=== PATIENT | female | born 1990 | race African-American/Black ===

== ENCOUNTER 2021-05-07 14:31 | Emergency (ER) | payer OTHER ==
--- OUTSIDE RECORDS SUMMARY | 2021-05-07 14:33 | XMS REPORT | Continuity of Care Document ---
:1990 Author Organization [facility] t Address [address] [place] [address] Care Team Providers Name Role Phone Albert Sandy MD Primary Care Physician Lab, Fam Pob I Attending Clinician Unavailable Julissa RODRÍGUEZ, T Attending Clinician Unavailable Problems Condition Condition Condition Status Onset Resolution Last Treating Co mments Source Name Details Category Date Date Treatment Clinician Date Allergic Allergic Disease Active Overview: [place] [facility] Methodi g of this st note might be different from the original. seasonal Pneumonia Pneumonia Disease Active Sohan efra Methodi st Sinusitis Sinusitis Disease Active Overview: [place] Form[facility] Methodi g of this st note might be different from the original. periodica lly Visual Visual Disease Active Overview: Maritato n impairment impairment Form[facility]in Methodi g of this st note might be different from the original. wears contacts and glasses Asthma Asthma Disease Active [place] Methodi st Allergies, Adverse Reactions, Alerts Allergy Allergy Status Severity Reaction(s) Onset Inactive Treating Comm ents Source Name Type Date Date Clinician Cefaclor Propensi Active 2015-12 [place] ty to 01-08 Methodi adverse 00:00: st reaction 00 s to drug Codeine Propensi Active 2015-12 [place] ty to 01-08 Methodi adverse 00:00: st reaction 00 s to drug Family History Family Member Diagnosis Comments Start Date Stop Date Source Maternal grandmother Heart disease [place] [facility] Maternal grandmother Hypertension [place] [facility] Natural mother Depression [facility] Natural mother Diabetes [facility] Natural mother Hypertension [place] [facility] Natural mother Osteoarthritis [place] [facility] Paternal grandfather Cancer [place] [facility] Paternal grandfather Hypertension [place] [facility] Paternal grandmother Hypertension [place] [facility] Natural brother Diabetes [place] Myers ethodist Natural brother Hypertension [place] [facility] Natural father ALS [place] [facility] Natural father Diabetes [place] [facility] Maternal grandfather Cancer Marita Vernno Maternal grandfather Hypertension [place] [facility] Social History Social Habit Start Date Stop Date Quantity Comments Source Tobacco use and 2018-01-09 2018-01-09 Never used [place] Myers ethodist exposure 00:00:00 00:00:00 Alcohol intake 2018-01-09 2018-01-09 Current drinker Yolis murphy [facility] 00:00:00 00:00:00 of alcohol (finding) Alcohol Comment 2016-11-07 2016-11-07 socially Quinton Myers ethodist 00:00:00 00:00:00 Sex [birth year] Qu[facility] Myers ethodist 00:00:00 00:00:00 Smoking Status Start Date Stop Date Source Never smoker Quinton Oconnell t Medications Ordered Filled Start Stop Current Ordering Indication Dosage Frequency Signature Comments Components Source Medication Medication Date Date Medication? Clinician (SIG) Name Name cetirizine Yes 10mg QD Take 10 mg [place] (ZyrTEC) 10 2-08 by mouth Meth caren MG tablet 09:15: daily. st 31 levocetiriz Yes 5mg QD Take 5 mg [place] ine (XYZAL) 2-08 by mouth Meth caren 5 MG tablet 09:15: every st 31 evening. fluticasone Yes 2{spray QD 2 sprays [place] (FLONASE) 2-08 } by Each Methodi 50 09:15: Nare route st mcg/actuati 31 daily. on nasal spray cholecalcif Yes 1000U QD Take 1,000 [place] marilyn, 2-08 Units by Methodi vitamin D3, 09:15: mouth st (VITAMIN 31 daily. D3) 1,000 unit tablet ASCORBIC Yes 1{tbl} QD Take 1 [place] ACID/MULTIV 2-08 tablet by Met hodi IT-MIN 09:15: mouth st (EMERGEN-C 31 daily. ORAL) biotin 2017- Yes 1{tbl} QD Take 1 [place] 2,500 mcg 2-08 tablet by Metho di capsule 09:15: mouth st 31 daily. QVAR 80 Yes 2PUFFS BY [place] mcg/actuati 1-23 MOUTH Methodi on inhaler 00:00: TWICE A st 00 DAY FOR 2 WEEKS THEN 2 PUFFS ONCE A DAY VENTOLIN 2015-12 Yes INHALE 2 [place] HFA 90 2-27 PUFFS 4 Methodi mcg/actuati 00:00: TIMES A st on inhaler 00 DAY NEEDED MINASTRIN 2015-12 Yes 1{tbl} QD Chew 1 [place] 24 FE 1 1-23 tablet Methodi mg-20 00:00: once st mcg(24) /75 00 daily. mg (4) tablet,chew able Procedures This patient has no known procedures. Plan of Care Planned Activity Planned Date Details Comments Source Future Scheduled 2021-07-02 INFLUENZA VACCINE [place] [facility] Test 00:00:00 [code = INFLUENZA VACCINE] Future Scheduled 2010 Screening for [place] [facility] Test 00:00:00 malignant neoplasm of cervix (procedure) [code = 763727081] Future Scheduled 2001 COVID-19 VACCINE (1) Sohan kraus [facility] Test 00:00:00 [code = COVID-19 VACCINE (1)] Encounters Start End Encounter Admission Attending Care Care Encounter Source Date/Time Date/Time Type Type Clinicians Facility Department ID 2020-12-03 2020-12-03 Laboratory Lab, [facility] [id number] 10:19:42 10:39:42 Only Fam P[facility] [id number] [place] [id number] Professio [phone] nal [address] 2020-07-28 2020-07-28 Letter ARIEL Costa [id number] 00:00:00 00:00:00 (Out) Annamaria Winters MAKEDA [id number] [facility] [id number] 2020-07-26 2020-07-26 Laboratory Lab, [facility] [id number] 08:27:06 08:47:06 Only Fam Pob I Health [id number] [place] [id number] Professio [phone] nal [address] Results This patient has no known results.
[2021-05-07 15:16] LABS: Absolute Lymphocytes (CBC) 1.4 K/uL (0.7-4.9); Basophils % 0.6 % (0-1.3); MPV 8.7 fL (7.6-11.3); RBC Red Blood Cell Count 4.36 M/uL (3.86-4.86)
[2021-05-07 15:19] LABS: Urine Blood Trace-intact (Negative); Urine Glucose Negative (Negative); Urine Protein Negative (Negative); Urine Specific Gravity 1.015 (1.005-1.030)
[2021-05-07 15:25] LABS: Protime INR 1.01
[2021-05-07] MEDS ORDERED: KETOROLAC 30 MG/ML INJ ONE (15:39)
[2021-05-07 15:40] LABS: ALT/SGPT 26 U/L (12-78); AST/SGOT 14 U/L (15-37); Albumin 3.5 g/dL (3.4-5.0); Alkaline Phosphatase 40 U/L (45-117); BUN Blood Urea Nitrogen 8 mg/dL (7-18); Bicarbonate 25 mmol/L (21-32); Bilirubin Direct < 0.1 mg/dL (0-0.2); Bilirubin Total 0.3 mg/dL (0.2-1.0); Glucose Level 114 mg/dL (74-106); Magnesium 2.2 mg/dL (1.8-2.4); NT PRO-BNP 84 pg/mL (<125); Potassium 3.8 mmol/L (3.5-5.1); Sodium Level 140 mmol/L (136-145); Troponin (Emerg Dept Use Only) < 0.02 ng/mL (0.0-0.045)
[2021-05-07 16:25] LABS: Urine Specific Gravity/Preg 1.015 (1.005-1.030)
--- NOTE | 2021-05-07 16:31 | RAD REPORT ---
EXAM DESCRIPTION: CT - Chest For Pe Angio - 05/07/2021 4:11 pm CLINICAL HISTORY: Chest pain TECHNIQUE: Dynamically enhanced axial 3 mm thick images of the chest were obtained during administra tion of <100> mL Isovue 370 IV contrast. Coronal and oblique reconstruction images were generated and reviewed. Exam utilizes a protocol for optimal evaluation of pulmonary arterial tree. Maximum intensity projections 3D imaging was utilized All CT scans are performed using dose optimization technique as appropriate and may include automated exposure control or mA/KV adjustment according to patient size. FINDINGS: A pulmonary embolus is not seen. A thoracic aortic aneurysm is not noted. A pleural effusion is not seen. A pericardial effusion is not seen. A lung consolidation is not present. 7.9 centimeter mass right lobe of liver IMPRESSION: Negative for a pulmonary embolism. 7.9 centimeter mass right lobe of the liver. Nonemergent MRI with contrast is recommended for further evaluation
--- NOTE | 2021-05-07 16:44 | RAD REPORT ---
EXAM DESCRIPTION: [place] Single View05/07/2021 4:08 pm CLINICAL HISTORY: Chest pain COMPARISON: 2017 FINDINGS: The lungs appear clear of acute infiltrate. The heart is normal size IMPRESSION: No acute abnormalities displayed
--- NOTE | 2021-05-07 16:58 | EDPHYS ---
Physician Documentation [facility] Name: Khushboo Christopher Age: 31 yrs Sex: Female : 1990 Arrival Date: 05/07/2021 Time: 14:33 Bed 13 Private MD: ED Physician Claudy Medrano HPI: 05/07 14:47 This 31 yrs old Black Female presents to ER via Ambulatory with complaints of Chest pm1 Pain. 14:47 The patient or guardian reports chest pain that is located primarily in the mid-sternal pm1 area. The pain does not radiate. Associated signs and symptoms: The patient has no apparent associated signs or symptoms, Pertinent negatives: abdominal pain, cough, diaphoresis, dizziness, nausea, shortness of breath, syncope, vomiting. The chest pain is described as sharp. Duration: The patient or guardian reports a single episode, that is still ongoing. Modifying factors: the symptoms are aggravated by deep breath, palpation of area. Severity of pain: in the emergency department the pain is unchanged. The patient has not experienced similar symptoms in the past. Historical: - Allergies: 14:37 Ceclor; aa5 14:37 Codeine; aa5 - Home Meds: 14:37 control [Active]; Singulair Oral [Active]; Zyrtec Oral [Active]; aa5 - PMHx: 14:37 Sjogren's Syndrome; aa5 - PSHx: 14:37 eye sx when baby; aa5 - Immunization history:: Adult Immunizations unknown. - Social history:: Smoking status: Patient denies any tobacco usage or history of. ROS: 14:47 Constitutional: Negative for fever, chills, and weight loss. pm1 14:47 Respiratory: Negative for shortness of breath, cough, wheezing, and pleuritic chest pain, Abdomen/GI: Negative for abdominal pain, nausea, vomiting, diarrhea, and constipation, Back: Negative for injury and pain, MS/Extremity: Negative for injury and deformity, Skin: Negative for injury, rash, and discoloration, Neuro: Negative for headache, weakness, numbness, tingling, and seizure. 14:47 Cardiovascular: Positive for chest pain, Negative for edema, palpitations. 14:47 All other systems are negative. Exam: 14:47 Constitutional: This is a well developed, well nourished patient who is awake, alert, pm1 and in no acute distress. Head/Face: Normocephalic, atraumatic. 14:47 Back: No spinal tenderness. No costovertebral tenderness. Full range of motion. 14:47 Skin: Warm, dry with normal turgor. Normal color with no rashes, no lesions, and no evidence of cellulitis. MS/ Extremity: Pulses equal, no cyanosis. Neurovascular intact. Full, normal range of motion. 14:47 Eyes: Exam is negative for acute changes, Extraocular movements: intact throughout, Sclera: icterus, is not appreciated. 14:47 ENT: Mouth: Lips: normal, Oral mucosa: normal, pink and intact, moist. 14:47 Chest/axilla: Inspection: normal, Palpation: crepitus, is not appreciated, tenderness, of the mid-sternal area, that totally reproduces the patient's complaints. 14:47 Cardiovascular: Rate: normal, Rhythm: regular, Pulses: no pulse deficits are appreciated, Edema: is not appreciated. 14:47 Respiratory: Exam negative for acute changes, respiratory distress, shortness of breath, Breath sounds: are clear throughout. 14:47 Abdomen/GI: Inspection: abdomen appears normal, Palpation: abdomen is soft and non-tender. 14:47 Neuro: Exam negative for acute changes, Orientation: is normal, Mentation: is normal, Motor: is normal, moves all fours. Vital Signs: 14:37 BP 161 / 113; Pulse 112; Resp 18 S; Temp 98.2(TE); Pulse Ox 99% on R/A; Weight 77.11 kg aa5 (R); Height 5 ft. 4 in. (162.56 cm) (R); Pain 3/10; 15:10 BP 122 / 85; Pulse 86; Resp 16; Pulse Ox 98% on R/A; vg1 16:59 BP 127 / 89; Pulse 88; Resp 16; Pulse Ox 100% ; vg1 14:37 Body Mass Index 29.18 (77.11 kg, 162.56 cm) aa5 MDM: 14:36 Patient medically screened. pm1 16:55 Data reviewed: vital signs. Data interpreted: Pulse oximetry: on room air is 98 %. pm1 Interpretation: normal. Counseling: I had a detailed discussion with the patient and/or guardian regarding: the historical points, exam findings, and any diagnostic results supporting the discharge/admit diagnosis, the need for outpatient follow up, a family practitioner, to return to the emergency department if symptoms worsen or persist or if there are any questions or concerns that arise at home. Special discussion: I discussed with the patient the need to follow-up with the PCP/specialist for the noted incidental finding on X-ray/CT scanning. 05/07 14:45 Order name: Basic Metabolic Panel; Complete Time: 15:54 pm1 05/07 14:45 Order name: CBC with Diff; Complete Time: 16:25 pm1 05/07 14:45 Order name: LFT's; Complete Time: 15:54 pm1 05/07 14:45 Order name: Magnesium; Complete Time: 15:54 pm1 05/07 14:45 Order name: NT PRO-BNP; Complete Time: 15:54 pm1 05/07 14:45 Order name: PT-INR; Complete Time: 15:54 pm1 05/07 14:45 Order name: Troponin (emerg Dept Use Only); Complete Time: 15:54 pm1 05/07 14:45 Order name: XRAY Chest (1 view); Complete Time: 16:46 pm1 05/07 14:45 Order name: EKG; Complete Time: 14:52 pm1 05/07 14:45 Order name: D-Dimer; Complete Time: 15:54 pm1 05/07 15:19 Order name: Urine Dipstick-Ancillary; Complete Time: 15:22 EDMS 05/07 15:36 Order name: Urine --Ancillary (enter results); Complete Time: 16:36 eb 05/07 15:54 Order name: CT Chest For PE Angio; Complete Time: 16:36 pm1 05/07 14:45 Order name: Cardiac monitoring; Complete Time: 15:03 pm1 05/07 14:45 Order name: EKG - Nurse/Tech; Complete Time: 15:03 pm05/07 14:45 Order name: IV Saline Lock; Complete Time: 15:03 pm05/07 14:45 Order name: Labs collected and sent; Complete Time: 15:03 pm1 05/07 14:45 Order name: O2 Per Protocol; Complete Time: 15:03 pm05/07 14:45 Order name: O2 Sat Monitoring; Complete Time: 15:03 pm1 05/07 14:45 Order name: Urine Dipstick-Ancillary (obtain specimen); Complete Time: 15:19 pm1 05/07 14:45 Order name: Urine Test (obtain specimen); Complete Time: 15:19 pm1 Administered Medications: 15:23 Drug: TORadol (ketorolac) 30 mg Route: IVP; Site: right forearm; vg1 17:01 Follow up: Response: No adverse reaction; Pain is decreased vg1 Disposition: 05/07/21 16:57 Discharged to Home. Impression: Chest pain, unspecified. - Condition is Stable. - Discharge Instructions: Nonspecific Chest Pain. - Prescriptions for Diclofenac Sodium 75 mg Oral Tablet, Delayed Release (E.C.) - take 1 tablet by ORAL route 2 times per day As needed; 30 tablet. - Medication Reconciliation Form, Thank You Letter, Antibiotic Education, Prescription Opioid Use form. - Follow up: Emergency Department; When: As needed; Reason: Worsening of condition. Follow up: Private Physician; When: 2 - 3 days; Reason: Recheck today's complaints, Continuance of care, Re-evaluation by your physician. - Problem is new. - Symptoms have improved. Addendum: 05/09/2021 08:01 Co-signature as Attending Physician, Claudy Medrano MD I agree with the assessment and c cano plan of care. Signatures: Dispatcher [employer] Claudy Tripp MD MD cha Calderon, Audri, RN RN aa5 Pablo Clement, SALIMA SEED LABORATORY TECHNICIAN pm1 Corrina Horne RN RN vg1 Corrections: (The following items were deleted from the chart) 05/07 17:21 16:57 05/07/2021 16:57 Discharged to Home. Impression: Chest pain, unspecified. vg1 Condition is Stable. Forms are Medication Reconciliation Form, Thank You Letter, Antibiotic Education, Prescription Opioid Use. Follow up: Emergency Department; When: As needed; Reason: Worsening of condition. Follow up: Private Physician; When: 2 - 3 days; Reason: Recheck today's complaints, Continuance of care, Re-evaluation by your physician. Problem is new. Symptoms have improved. pm1
--- NOTE | 2021-05-07 16:58 | ER ---
Nurse's Notes [facility] Name: Khushboo Christopher Age: 31 yrs Sex: Female : 1990 Arrival Date: 05/07/2021 Time: 14:33 Bed 13 Private MD: Diagnosis: Chest pain, unspecified Presentation: 05/07 14:36 Chief complaint: Patient states: intermittent left-sided chest pain that is aggravated aa5 with movement. Symptoms began . Coronavirus screen: At this time, the client does not indicate any symptoms associated with coronavirus-19. Ebola Screen: Patient negative for fever greater than or equal to 101.5 degrees Fahrenheit, and additional compatible Ebola Virus Disease symptoms. Initial Sepsis Screen: Does the patient meet any 2 criteria? No. Patient's initial sepsis screen is negative. Does the patient have a suspected source of infection? No. Patient's initial sepsis screen is negative. Risk Assessment: Do you want to hurt yourself or someone else? Patient reports no desire to harm self or others. Onset of symptoms was May 2021. 14:36 Method Of Arrival: Ambulatory aa5 14:36 Acuity: SENTHIL 3 aa5 Historical: - Allergies: 14:37 Ceclor; aa5 14:37 Codeine; aa5 - Home Meds: 14:37 control [Active]; Singulair Oral [Active]; Zyrtec Oral [Active]; aa5 - PMHx: 14:37 Sjogren's Syndrome; aa5 - PSHx: 14:37 eye sx when baby; aa5 - Immunization history:: Adult Immunizations unknown. - Social history:: Smoking status: Patient denies any tobacco usage or history of. Screenin:11 Abuse screen: Denies threats or abuse. Nutritional screening: No deficits noted. vg1 Tuberculosis screening: No symptoms or risk factors identified. Fall Risk No fall in past 12 months (0 pts). No secondary diagnosis (0 pts). IV access (20 points). Ambulatory Aid- None/Bed Rest/Nurse Assist (0 pts). Gait- Normal/Bed Rest/Wheelchair (0 pts) Mental Status- Oriented to own ability (0 pts). Total Lynn Fall Scale indicates No Risk (0-24 pts). Assessment: 14:45 General: Appears in no apparent distress. comfortable, Behavior is calm, cooperative. vg1 Pain: Denies pain. Complains of pain in anterior aspect of left upper chest and mid-sternal area Pain does not radiate. Pain currently is 0 out of 10 on a pain scale. Pain began 05/07/21. Neuro: Level of Consciousness is awake, alert, obeys commands, Oriented to person, place, time, situation. Cardiovascular: Patient's skin is warm and dry. Respiratory: Airway is patent Respiratory effort is even, unlabored. GI: Patient currently denies diarrhea, nausea, vomiting. : No signs and/or symptoms were reported regarding the genitourinary system. EENT: No signs and/or symptoms were reported regarding the EENT system. Derm: Skin is intact, is healthy with good turgor. Musculoskeletal: Circulation, motion, and sensation intact. 17:01 Reassessment: Patient appears in no apparent distress at this time. Patient and/or vg1 family updated on plan of care and expected duration. Pain level reassessed. Patient is alert, oriented x 3, equal unlabored respirations, skin warm/dry/pink. Patient is alert/active/playful, equal unlabored respirations, skin warm/dry/pink. Patient denies pain at this time. Patient states feeling better. Vital Signs: 14:37 BP 161 / 113; Pulse 112; Resp 18 S; Temp 98.2(TE); Pulse Ox 99% on R/A; Weight 77.11 kg aa5 (R); Height 5 ft. 4 in. (162.56 cm) (R); Pain 3/10; 15:10 BP 122 / 85; Pulse 86; Resp 16; Pulse Ox 98% on R/A; vg1 16:59 BP 127 / 89; Pulse 88; Resp 16; Pulse Ox 100% ; vg1 14:37 Body Mass Index 29.18 (77.11 kg, 162.56 cm) aa5 ED Course: 14:33 Patient arrived in ED. ds1 14:35 Pablo Clement NP is PHCP. pm1 14:35 Claudy Medrano MD is Attending Physician. pm1 14:37 Triage completed. aa5 14:38 Arm band placed on Patient placed in an exam room, on a stretcher. aa5 14:46 Corrina Horne, ANNE is Primary Nurse. vg1 15:00 Initial lab(s) drawn, by me, sent to lab. EKG done, by ED staff, reviewed by Pablo [email or web address] Racquel BORREGO. Inserted saline lock: 20 gauge in right forearm, using aseptic technique. Blood collected. 15:11 Patient has correct armband on for positive identification. Placed in gown. Bed in low vg1 position. Call light in reach. Side rails up X 1. 15:11 potline monitor on. Pulse ox on. NIBP on. vg1 15:11 Patient maintains SpO2 saturation greater than 95% on room air. vg1 16:08 XRAY Chest (1 view) In Process Unspecified. EDMS 16:12 CT Chest For PE Angio In Process Unspecified. EDMS 17:20 No provider procedures requiring assistance completed. IV discontinued, intact, vg1 bleeding controlled, No redness/swelling at site. Pressure dressing applied. Administered Medications: 15:23 Drug: TORadol (ketorolac) 30 mg Route: IVP; Site: right forearm; vg1 17:01 Follow up: Response: No adverse reaction; Pain is decreased vg1 Outcome: 16:57 Discharge ordered by MD. pm1 17:20 Discharged to home ambulatory, with family. vg1 17:20 Condition: stable 17:20 Discharge instructions given to patient, Instructed on discharge instructions, follow up and referral plans. medication usage, Demonstrated understanding of instructions, follow-up care, medications, Prescriptions given X 1. 17:21 Patient left the ED. vg1 Signatures: Dispatcher [employer] [facility] Dominik Ariella ds1 Melia Cohn RN RN aa5 Marinas, Patrick, SALIMA RUBY ON RAILS DEVELOPER pm1 Corrina Horne RN RN vg1
[2021-05-07 17:29] VITALS: TEMP 98.2
[2021-05-07 17:32] VITALS: BP 127/89; O2SAT 100
== END 2021-05-07 17:21 | disposition home or self-care (01) ==
LOC: ER 14:31
DX: R07.9 Chest pain, unspecified (principal); M35.00 Sjogren syndrome, unspecified; Z88.5 Allergy status to narcotic agent; Z88.8 Allergy status to other drugs, medicaments and biological substances
CPT/HCPCS: 93005; 85025; 80048; 36415; 83735; 81025; 85610; 85379; 80076; 81003; 84484; 83880; 71275; 71045; 96374; 99285; Q9967

== ENCOUNTER 2021-06-21 06:35 | Day surgery (SDC) | payer OTHER ==
[2021-06-20 09:00] LABS: Urine Appearance CLEAR (Clear); Urine Bilirubin NEGATIVE (Negative); Urine Blood TRACE (Negative); Urine Color YELLOW (Yellow); Urine Glucose NEGATIVE (Negative); Urine Protein NEGATIVE (Negative); Urine Urobilinogen 0.2 mg/dL (0.2-1.0)
[2021-06-20 09:02] LABS: Urine Microscopic Reflex ORDER UMIC
[2021-06-20 09:07] LABS: Absolute Lymphocytes (CBC) 1.1 K/uL (0.7-4.9); Basophils % 1.1 % (0-1.3); Hematocrit 38.4 % (36.0-45.0); Lymphocytes % 36.2 % (15.3-44.8); MPV 8.2 fL (7.6-11.3); RBC Red Blood Cell Count 4.38 M/uL (3.86-4.86)
[2021-06-20 10:23] LABS: Urine Bacteria NONE SEEN /HPF (<20); Urine RBC <5 /HPF (NONE SEEN)
[2021-06-21] MEDS ORDERED: Ringers Lactate 1,000 ML IV ONE ×2 (07:11→09:42)
[2021-06-21] MEDS ORDERED: BUPIVACAINE 0.25% PF 30 ML VIAL ONE (07:14)
[2021-06-21] MEDS ORDERED: NA CHLORIDE 0.9% 1,000 ML ONE (07:14)
[2021-06-21] MEDS ORDERED: HEPARIN 5000 UNIT/ML 1 ML VIAL ONE (07:23)
[2021-06-21] MEDS ORDERED: CELECOXIB 100 MG CAPSULE ONE (07:23)
[2021-06-21] MEDS ORDERED: SCOPOLAMINE HYDROBROMIDE PATCH TD ONE (07:23)
[2021-06-21] MEDS ORDERED: ACETAMINOPHEN 500 MG TAB ONE (07:24)
[2021-06-21] MEDS ORDERED: dexAMETHasone 10 MG/ML VIAL ONE (07:32)
[2021-06-21] MEDS ORDERED: FENTANYL CITR 250 MCG/5 ML ONE (07:32)
[2021-06-21] MEDS ORDERED: ONDANSETRON 4 MG/2 ML VIAL ONE (07:32)
[2021-06-21] MEDS ORDERED: MIDAZOLAM HCL 2 MG/2 ML INJ ONE (07:32)
[2021-06-21] MEDS ORDERED: propofoL 200 MG/20 ML VIAL IV ONE (07:32)
[2021-06-21] MEDS ORDERED: LIDOCAINE 1% MPF 5 ML VIAL ONE (07:32)
[2021-06-21] MEDS ORDERED: ROCURONIUM 50 MG/5 ML VIAL IV ONE (07:32)
[2021-06-21] MEDS ORDERED: GLYCOPYRROLATE 0.2 MG/ML SYR ONE ×2 (09:05→09:08)
[2021-06-21] MEDS ORDERED: KETOROLAC 30 MG/ML INJ ONE (09:53)
[2021-06-21] MEDS ORDERED: PROMETHAZINE INJ 25 MG/ML AMP IV PRN (10:21)
[2021-06-21] MEDS ORDERED: MEPERIDINE HCL 25 MG/ML SYR IM PRN (10:21)
[2021-06-21] MEDS ORDERED: HYDROCODONE/APAP 5/325 MG TAB PO PRN (10:21)
[2021-06-21] MEDS ORDERED: IBUPROFEN 200 MG TAB PO PRN (10:21)
[2021-06-21] MEDS ORDERED: HOME MED 1 EA UNK (Melatonin [Melatonin] 10 MG Capsule) PO PRN (10:23)
[2021-06-21] MEDS ORDERED: IBUPROFEN 200 MG PO PRN (10:23)
[2021-06-21] MEDS ORDERED: FAMOTIDINE 20 MG TAB PO PRN (10:23)
[2021-06-21] MEDS: HYDROMORPHONE HCL 1 MG/ML INJ ONE ×2 (10:25→10:30)
--- NOTE | 2021-06-21 10:27 | P.BOP ---
Preoperative diagnosis: deep dyspareunia, leiomyomata, hepatic cyst Postoperative diagnosis: same and deep infiltrating endometriosis Primary procedure: Diag hysteroscopy d/c, diag laparoscopy Endo Rx for peritoneal implants and Wire Loop Machine Operator: REDDY DOYLE Estimated blood loss: min Specimen: endoemtriosis right lat wall left lat wall and RVS ,CDS implants together Findings: endo implants right lat wall, USL and CDS, RVS Anesthesia: General Complications: None Transferred to: Recovery Room Condition: Good
[2021-06-21] MEDS ORDERED: HYDROCODONE/APAP 5/325 MG TAB PO ONE (11:00)
[2021-06-21] MEDS ORDERED: HYDROCODONE/APAP 5/325 MG TAB ONE (11:26)
[2021-06-21 11:39] VITALS: BP 120/68; TEMP 97.4; O2SAT 99
--- NOTE | 2021-06-21 16:18 | OP ---
Date of Procedure: 06/21/2021 Surgeon: Kari Lucero MD Party Supply Specialist: Loretta Allan. Preoperative Diagnoses: Deep dyspareunia and leiomyomata. Postoperative Diagnoses: Deep dyspareunia and leiomyomata and significant endometriosis of the recto vaginal septum, right lateral wall and left lateral wall. Procedures Performed: Diagnostic hysteroscopy, diagnostic laparoscopy with peritoneal endometriosis excision of the lateral hugo and the excision of the large endometriotic implant from the rectovagin al septum. Anesthesia: General endotracheal. Specimens: Endometrial curettings, endometriosis implants on the right lateral wall, the left latera l wall, and rectovaginal septum. Posterior cul-de-sac. Implants were all sent together as 1 specime n in a cup. Estimated Blood Loss: Minimal. Urine Output: 200. Condition: Stable. Findings: Nodular endometriosis on the left distal uterosacral ligament, posterior cul-de-sac, perit oneum going over the sigmoid colon and implants infiltrating the rectovaginal septum. Peritoneal imp lant adjacent to the uterosacral on the left side was also excised and included. Ovaries normal. Tubes normal. Appendix, peritoneum on the upper abdominal surfaces all unremarkable without any further endometriosis. The fibroids, the anterior wall leiomyoma; the largest on the le ft and the small of 3 cm on the right side. No endometriosis implants in the anterior cul-de-sac. Procedure In Detail: After informed consent was verified, the patient was taken back to OR, placed i n a supine fashion on the operating table. General anesthesia was given. She was placed in a dorsal lithotomy position. Heparin subcu was given. SCDs were started. No antibiotics indicated for this procedure. She was placed in a dorsal lithotomy position and pelvic exam was performed. Abdomen, v ulva, vagina, and perineum prepped and draped in a sterile fashion. Olson placed to drain the bladde r and attached for drainage. The speculum placed to expose the cervix. Anterior lip grasped with 2 Allis clamps and diagnostic SlimLine hysteroscope was used for entering the cervical canal and terell sing under direct vision into the uterine cavity. Cavity was empty, somewhat narrower, most likely f rom the impressions of the fibroids. The scope was pulled out. Endometrial curettage was performed and handed out for permanent pathology. Diagnostic VCare introduced and this area was draped. All t he instruments were removed. A 1 cm infraumbilical incision was made with a scalpel using the open laparoscopy technique. Fascia was incised and tagged with 0 Vicryl sutures. Peritoneum entered sharply. Retractors were placed to introduce the Rico. After adequate insufflation, site of entry was checked and was unremarkable. A 5 mm left lower quadrant, right lower quadrant suprapubic trocars were placed under direct vision. Marcaine was injected at the fascia and skin at all 4 incision sites. After doing a good abdominal survey of the upper abdominal surfaces and the lower abdomen mapping out the endometriosis and the areas as dictated in the findings. The tubes and ovaries were photographe d, the fibroids were as well. The endometriotic sites were photographed. A monopolar needle was taken in the right lateral wall, anterior and lateral to the ureter. The ladi toneal incision was made with scissors, then with the monopolar needle, the implants were dissected a way. There were 2 implants, 1 larger than the other and both of them were clearly lateral to the ure ter and they were all dissected completely. The peritoneum was unremarkable in the surrounding area. On the posterior cul-de-sac, rectovaginal septum and left uterosacral implant, the rectum was well vi sualized. The peritoneum of the rectum was picked up, incised with scissors sharply, then dissection was performed to dissect the rectum away from the peritoneum. Once this was done by push-spread roberto hnique and taking down the rectum from the fat and found to fit the rectal fat. Then, the peritoneum incised all the way laterally to the uterosacral. The location of the ureter was identified and it was well lateral to it. Then, the peritoneum all around was scored with the help of monopolar needle and the implant was dissected first free from the rectum and the fat and off the uterosacral ligamen t as well and when the implants attachment to the posterior vaginal wall was visualized, then, this e ntire area was excised clearly to remove the infiltrating tissue of the endometriosis completely till normal tissue was seen. There was no colpotomy made in this process. However, there was thinning o f that vaginal wall as visualized, but there was no need for repair at this point. Once the entire implant was removed with the help of the needle, then the lateral implant on the left lateral wall was also picked up, incised and excised with the help of the monopolar needle. After a ll the implants were retrieved for permanent pathology, thorough irrigation suction was performed. I nterceed was placed in both the areas of dissection to prevent adhesions. The trocars were removed. Instrument, needle, and sponge counts were correct at the end of the case. Skin closure, fascial cl osure at the umbilicus with the tagged 0 Vicryl sutures tied to each other and 4-0 Vicryl interrupted on all of the skin incisions. VCare and Olson were removed. Instrument, needle, and sponge counts were correct as dictated. She was recovered from anesthesia and taken to PACU in stable condition. MADINA/JESSY Voice ID: [id number] Report ID: [id number]
[2021-06-22] MEDS ORDERED: MONTELUKAST 10 MG TAB PO SCH (09:00)
[2021-06-22] MEDS ORDERED: HOME MED 1 EA UNK (Levocetirizine Dihydrochloride [Xyzal] 5 MG Tablet) PO SCH (09:00)
== END 2021-06-21 11:36 | disposition home health service (06) ==
LOC: OR 06:35
PROVIDERS: ATTEND Obstetrics & Gynecology
PROC: 0UBF4ZZ Excision of Cul-de-sac, Percutaneous Endoscopic Approach (ICD-10-PCS; 2021-06-21)
PROC: 0UDB8ZX Extraction of Endometrium, Via Natural or Artificial Opening Endoscopic, Diagnostic (ICD-10-PCS; 2021-06-21)
PROC: 0WBF4ZZ Excision of Abdominal Wall, Percutaneous Endoscopic Approach (ICD-10-PCS; principal; 2021-06-21 07:30)
DX: N94.12 Deep dyspareunia (principal); N80.0 Endometriosis of uterus; R16.0 Hepatomegaly, not elsewhere classified; D25.9 Leiomyoma of uterus, unspecified; M35.00 Sjogren syndrome, unspecified; N80.3 Endometriosis of pelvic peritoneum
CPT/HCPCS: 85025; 36415; 86900; 86850; 81025; 86901; 88305; 58662; 58555; J2704; J1644; J2250; J3010; J1100; J1170; J7120 ×2; J7030; J2405; 81003; 81015

== ENCOUNTER 2025-09-03 17:50 | Emergency (ER) | payer OTHER ==
[2025-09-03] MEDS ORDERED: ONDANSETRON 4 MG/2 ML VIAL ONE (18:30)
[2025-09-03] MEDS ORDERED: MORPHINE 4 MG/ML SYR ONE (18:30)
[2025-09-03] MEDS ORDERED: NA CHLORIDE 0.9% 1,000 ML ONE (18:31)
[2025-09-03 18:43] LABS: Absolute Lymphocytes (CBC) 1.5 K/uL (0.7-4.9); Hematocrit 37.6 % (36.0-45.0); Hemoglobin 12.7 g/dL (12.0-15.0); MCH 29.7 pg (27.0-35.0); MCHC 33.9 g/dL (32.0-36.0); MCV 87.5 fL (80-100); MPV 7.9 fL (7.6-11.3); Nucleated RBC Absolute Count 0.0 (0-0); Nucleated Red Blood Cells % 0.1 % (0-0); RBC Red Blood Cell Count 4.29 M/uL (3.86-4.86); White Blood Count 4.20 thou/uL (4.3-10.9)
[2025-09-03 19:03] LABS: Anion Gap 8.3 mEq/L (5.0-15.0); BUN Blood Urea Nitrogen 15 mg/dL (7-18); Glucose Level 88 mg/dL (74-106); NT PRO-BNP 20 pg/mL (<125); Potassium 4.3 mEq/L (3.5-5.1)
[2025-09-03 19:04] LABS: Troponin High Sensitivity < 3.0 pg/mL (<58.9)
--- NOTE | 2025-09-03 19:04 | RAD REPORT ---
EXAM: Chest Single View HISTORY: 35 years Female CHEST PAIN COMPARISON: 05/07/2021 FINDINGS: LUNGS/PLEURA: The lungs are clear. No pleural effusions or pneumothorax. No pulmonary edema. CARDIAC/MEDIASTINUM: The cardiac silhouette is within normal limits. UPPER ABDOMEN: No significant abnormality. BONES: No acute abnormality. LINES/TUBES/OTHER: N/A IMPRESSION: No evidence of acute cardiopulmonary disease.
--- NOTE | 2025-09-03 19:33 | EDPHYS ---
Physician Documentation [facility] Name: Khushboo Christopher Age: 35 yrs Sex: Female : 1990 Arrival Date: 09/03/2025 Time: 17:50 Bed 6 Private MD: ED Physician Zoya Cole HPI: 09/03 19:22 This 35 yrs old Black Female presents to ER via Ambulatory with complaints of Chest dr5 Pain. 19:22 Onset: The symptoms/episode began/occurred acutely. Patient is a 35-year-old female dr5 with history of Sjogren's syndrome coming in with acute substernal chest pain that radiates to back that started this afternoon around 2:00. Patient reports to Motrin which alleviated the pain a little bit. Patient reports history of pleurisy. Patient denies chest pain, abdominal pain, nausea, vomiting, diarrhea. Patient reports that her pain has improved since 2:00 today.. Historical: - Allergies: 18:26 Ceclor; ap3 18:26 Codeine; ap3 - PMHx: 18:26 Sjogren's Syndrome; ap3 - Immunization history:: Adult Immunizations unknown. - Infectious Disease History:: Denies. - Social history:: Smoking status: Patient denies any tobacco usage or history of. Patient uses alcohol, only on a social basis. ROS: 19:22 Constitutional: as per hpi dr5 Exam: 19:22 Constitutional: This is a well developed, well nourished patient who is awake, alert, dr5 and in no acute distress. Head/Face: Normocephalic, atraumatic. Eyes: Pupils equal round and reactive to light, extra-ocular motions intact. Lids and lashes normal. Conjunctiva and sclera are non-icteric and not injected. Cornea within normal limits. Periorbital areas with no swelling, redness, or edema. Chest/axilla: Normal chest wall appearance and motion. Nontender with no deformity. No lesions are appreciated. Cardiovascular: Regular rate and rhythm with a normal S1 and S2. Normal PMI, no JVD. No pulse deficits. Respiratory: Lungs have equal breath sounds bilaterally, clear to auscultation. No rales, rhonchi or wheezes noted. No increased work of breathing, no retractions or nasal flaring. Abdomen/GI: Soft, non-tender, non-distended Back: No spinal tenderness. No costovertebral tenderness. Full range of motion. Skin: Warm, dry with normal turgor. Normal color with no rashes, no lesions, and no evidence of cellulitis. MS/ Extremity: Pulses equal, no cyanosis. Neurovascular intact. Full, normal range of motion. Neuro: Awake and alert, GCS 15, oriented to person, place, time, and situation. Cranial nerves II-XII grossly intact. Motor strength 5/5 in all extremities. Sensory grossly intact. Cerebellar exam normal. Normal gait. Vital Signs: 18:23 BP 133 / 97; Pulse 73; Resp 18; Temp 98.4; Pulse Ox 100% ; Weight 73.94 kg; Height 5 ap3 ft. 3 in. ; Pain 7/10; 18:33 BP 128 / 94; Pulse 69; Resp 15; Pulse Ox 100% ; Pain 4/10; jl7 19:19 BP 132 / 85; Pulse 88; Resp 18; Pulse Ox 96% on R/A; kb4 18:23 Body Mass Index 28.87 (73.94 kg, 160.02 cm) ap3 18:23 Pain Scale: Adult ap3 18:33 Pain Scale: Adult jl7 MDM: 18:03 Medical Screening Exam initiated dr5 19:31 Differential diagnosis: viral Infection, bacterial infection, PE, NSTEMI, STEMI, dr5 pleurisy. Data reviewed: vital signs, nurses notes, lab test result(s), cardiac enzymes, troponin i, CBC, white blood cell count, hemoglobin, hematocrit, platelets, electrolytes, sodium, potassium, chloride, serum bicarbonate, BUN, creatinine, serum glucose, BNP, D-dimer, EKG, radiologic studies, plain films. Consideration of Admission/Observation Escalation of care including admission/observation considered. Escalation considered if patient found to have elevated troponin. I considered the following discharge prescriptions or medication management in the emergency department I discussed and recommended Over The Counter medications, Medications were administered in the Emergency Department. See MAR. Independent interpretation of the following test(s) in the Emergency Department X-Ray: My interpretation is Independent interpretation of x-ray does not reveal infiltrates concerning for pneumonia. Historians other than the Patient: Spouse/Significant Other: Spouse. Parent: Mother. Care significantly affected by the following chronic conditions: Sjogren's syndrome. Care significantly affected by the following Social Determinants of Health: Poor access to healthcare and/or lack of insurance, Poor access to transportation, Problems related to employment. Scoring Tools HEART Score: History: ECG: Age: Risk Factors: No Risk Factors Known (0), Troponin: Total Score = 0. Counseling: I had a detailed discussion with the patient and/or guardian regarding the historical points, exam findings, and any diagnostic results supporting the discharge/admit diagnosis, the presence of at least one elevated blood pressure reading (>120/80) during this emergency department visit, lab results, radiology results, the need for outpatient follow up, for definitive care, a family practitioner, to return to the emergency department if symptoms worsen or persist or if there are any questions or concerns that arise at home. Medication response: Morphine, Zofran, dexamethasone. Response to treatment: the patient's symptoms have resolved after treatment, the patient's condition has returned to base line, the patient is now symptom free. Special discussion: Based on the patient's history, exam, and Dx evaluation, there is no indication for emergent intervention or inpatient Tx. It is understood by the patient/guardian that if the Sx's persist or worsen they need to return immediately for re-evaluation. Based on the history and exam findings, there is no indication for further emergent testing or inpatient evaluation. I discussed with the patient/guardian the need to see the primary care provider for further evaluation of the symptoms. ED course: Will have patient follow-up primary care doctor. All labs and diagnostics printed and given to patient. Will give patient steroid Dosepak for pleurisy. All questions answered. Strict ER precautions given.. 09/03 18:13 Order name: Basic Metabolic Panel; Complete Time: : dr5 09/03 18:13 Order name: CBC with Diff; Complete Time: 18:48 dr5 09/03 18:13 Order name: NT PRO-BNP; Complete Time: : dr5 09/03 18:13 Order name: Troponin HS; Complete Time: : dr5 09/03 18:13 Order name: D-Dimer; Complete Time: :17 dr5 09/03 18:13 Order name: XRAY Chest (1 view); Complete Time: 19:17 dr5 09/03 18:13 Order name: EKG; Complete Time: 18:14 dr5 09/03 18:13 Order name: Cardiac monitoring; Complete Time: 18:35 dr5 09/03 18:13 Order name: EKG - Nurse/Tech; Complete Time: 18:35 dr5 09/03 18:13 Order name: IV Saline Lock; Complete Time: 18:37 dr5 09/03 18:13 Order name: Labs collected and sent; Complete Time: 18:37 dr5 09/03 18:13 Order name: O2 Per Protocol; Complete Time: 18:35 dr5 09/03 18:13 Order name: O2 Sat Monitoring; Complete Time: 18:35 dr5 EC:20 Rate is 68 beats/min. Rhythm is regular. QRS [place] is Normal. [place] interval is normal at dr5 148 msec. QRS interval is normal at 80 msec. QT interval is normal at 398 msec. Clinical impression: Normal ECG and No evidence of ischemia. Administered Medications: 18:47 Drug: NS 0.9% IV 1000 ml IV at 1000 ml once; to be given as a bolus over 60 minutes jl7 Route: IV; Rate: 1000 ml; Site: right forearm; 19:42 Follow up: Response: No adverse reaction; IV Status: Completed infusion; IV Intake: al5 1000ml 18:47 Drug: morphine IVP or IV 4 mg IVP once over 4 mins Route: IVP; Infused Over: 4 mins; jl7 Site: right forearm; 19:19 Follow up: Response: No adverse reaction kb4 18:47 Drug: Dexamethasone IVP 10 mg IVP once; (not to exceed 40 mg) Route: IVP; Site: right jl7 forearm; 19:19 Follow up: Response: No adverse reaction kb4 18:47 Drug: Ondansetron IVP 4 mg IVP once; over 2 minutes Route: IVP; Site: right forearm; jl7 19:19 Follow up: Response: No adverse reaction kb4 Disposition Summary: 09/03/25 19:33 Discharge Ordered Notes: Location: Home dr5 Condition: Stable dr5 Diagnosis - Pleurisy dr5 Followup: dr5 - With: Emergency Department - When: As needed - Reason: Worsening of condition Followup: dr5 - With: Private Physician - When: 1 - 2 days - Reason: Recheck today's complaints, Continuance of care, Re-evaluation by your physician Discharge Instructions: - Discharge Summary Sheet dr5 - Pleurisy dr5 Forms: - Work release form dr5 - Medication Reconciliation Form dr5 - Patient Portal Instructions dr5 - Leadership Thank You Letter dr5 Prescriptions: - Tramadol 50 mg Oral Tablet - take 1 tablet ORAL route every 8 hours as needed; 12 tablet; Refills: 0, dr5 Product Selection Permitted - Medrol (Matthias) 4 mg Oral Tablets, Dose Pack - take 1 tablet ORAL route as directed - follow package instructions; 1 packet; dr5 Refills: 0, Product Selection Permitted Signatures: Dispatcher [employer] Moses Salamanca RN RN jl7 Maxine Corbin RN RN ap3 Ant Coe, BELIA-C LEAD JAVA DEVELOPER ARCHITECT-5 Maxine Bennett RN al5 Natalia Estrella RN kb4
--- NOTE | 2025-09-03 19:33 | ER ---
Nurse's Notes [facility] Name: Khushboo Christopher Age: 35 yrs Sex: Female : 1990 Arrival Date: 09/03/2025 Time: 17:50 Bed 6 Private MD: Diagnosis: Pleurisy Presentation: 09/03 18:23 Chief complaint: Patient states: she started having chest pain at approx 1400 this ap3 afternoon. patient reports the pain is worse when she breathes in or moves a certain way. patient currently rates her pain as a 7/10 on the pain scale. Coronavirus screen: At this time, the client does not indicate any symptoms associated with coronavirus-19. Ebola Screen: No symptoms or risks identified at this time. Initial Sepsis Screen: Does the patient meet any 2 criteria? No. Patient's initial sepsis screen is negative. Does the patient have a suspected source of infection? No. Patient's initial sepsis screen is negative. Risk Assessment: Do you want to hurt yourself or someone else? Patient reports no desire to harm self or others. Onset of symptoms was September 03, 2025 at 14:00. 18:23 Method Of Arrival: Ambulatory ap3 18:23 Acuity: SENTHIL 2 ap3 Triage Assessment: 18:26 General: Appears in no apparent distress. Behavior is calm, cooperative, appropriate ap3 for age. Pain: Complains of pain in chest Pain began 4 hours ago. Neuro: Level of Consciousness is awake, alert, obeys commands, Oriented to person, place, time, situation, Appropriate for age. Cardiovascular: Patient's skin is warm and dry. Cardiovascular: Reports chest pain, since 1400 today. Respiratory: Airway is patent Respiratory effort is even, unlabored, Respiratory pattern is regular, symmetrical. Historical: - Allergies: 18:26 Ceclor; ap3 18:26 Codeine; ap3 - PMHx: 18:26 Sjogren's Syndrome; ap3 - Immunization history:: Adult Immunizations unknown. - Infectious Disease History:: Denies. - Social history:: Smoking status: Patient denies any tobacco usage or history of. Patient uses alcohol, only on a social basis. Screenin:29 Abuse screen: Denies threats or abuse. Nutritional screening: No deficits noted. ap3 Tuberculosis screening: No symptoms or risk factors identified. 18:33 [facility] ED Fall Risk Assessment (Adult) History of falling in the last 3 months, jl7 including since admission No falls in past 3 months (0 pts) Confusion or Disorientation No (0 pts) Intoxicated or Sedated No (0 pts) Impaired Gait No (0 pts) Mobility Assist Device Used No (0 pt) Altered Elimination No (0 pt) Score/Fall Risk Level 0 - 2 = Low Risk Oriented to surroundings, Maintained a safe environment. Assessment: 18:33 General: Appears in no apparent distress. uncomfortable, Behavior is calm, cooperative, jl7 appropriate for age. Pain: Complains of pain in mid-sternal area Pain radiates to thoracic area Pain currently is 4 out of 10 on a pain scale. at worst was 7 out of 10 on a pain scale. Quality of pain is described as sharp, Pain began Is intermittent, Aggravated by repositioning, breathing. Neuro: Perez Agitation-Sedation Scale (RASS): 0 - Alert and Calm Level of Consciousness is awake, alert, obeys commands, Oriented to person, place, time, situation. Cardiovascular: Patient's skin is warm and dry. Rhythm is regular. Respiratory: Airway is patent Respiratory effort is even, unlabored, Respiratory pattern is regular, symmetrical. 19:18 Reassessment: Patient and/or family updated on plan of care and expected duration. Pain kb4 level reassessed. Patient is alert, oriented x 3, equal unlabored respirations, skin warm/dry/pink. Vital Signs: 18:23 BP 133 / 97; Pulse 73; Resp 18; Temp 98.4; Pulse Ox 100% ; Weight 73.94 kg; Height 5 ap3 ft. 3 in. ; Pain 7/10; 18:33 BP 128 / 94; Pulse 69; Resp 15; Pulse Ox 100% ; Pain 4/10; jl7 19:19 BP 132 / 85; Pulse 88; Resp 18; Pulse Ox 96% on R/A; kb4 18:23 Body Mass Index 28.87 (73.94 kg, 160.02 cm) ap3 18:23 Pain Scale: Adult ap3 18:33 Pain Scale: Adult jl7 ED Course: 17:51 Patient arrived in ED. mr 18:02 Ant Coe F[facility]-C [facility]. dr5 18:02 Zoya Cole MD is Attending Physician. dr5 18:19 Shah, Jahala, RN is Primary Nurse. jl7 18:25 Triage completed. ap3 18:28 EKG done, by ED staff, reviewed by Ant PATEL. ap3 18:29 Patient maintains SpO2 saturation greater than 95% on room air. ap3 18:29 Patient has correct armband on for positive identification. Placed in gown. Bed in low ap3 position. Call light in reach. 18:32 Initial lab(s) drawn, by me, sent to lab. Inserted saline lock: 22 gauge in right jl7 forearm, using aseptic technique. Blood collected. Flushed with 10 mL NS. 18:33 Provided Education on: use of call boone. Client placed on continuous cardiac and pulse jl7 oximetry monitoring. NIBP monitoring applied. 18:48 XRAY Chest (1 view) In Process Unspecified. EDMS 19:31 Primary Nurse role handed off by Moses Shah RN vk 19:44 No provider procedures requiring assistance completed. IV discontinued, intact, al5 bleeding controlled, No redness/swelling at site. Pressure dressing applied. Administered Medications: 18:47 Drug: NS 0.9% IV 1000 ml IV at 1000 ml once; to be given as a bolus over 60 minutes jl7 Route: IV; Rate: 1000 ml; Site: right forearm; 19:42 Follow up: Response: No adverse reaction; IV Status: Completed infusion; IV Intake: al5 1000ml 18:47 Drug: morphine IVP or IV 4 mg IVP once over 4 mins Route: IVP; Infused Over: 4 mins; jl7 Site: right forearm; 19:19 Follow up: Response: No adverse reaction kb4 18:47 Drug: Dexamethasone IVP 10 mg IVP once; (not to exceed 40 mg) Route: IVP; Site: right jl7 forearm; 19:19 Follow up: Response: No adverse reaction kb4 18:47 Drug: Ondansetron IVP 4 mg IVP once; over 2 minutes Route: IVP; Site: right forearm; jl7 19:19 Follow up: Response: No adverse reaction kb4 Medication: 18:33 VIS not applicable for this client. jl7 Intake: 19:42 IV: 1000ml; Total: 1000ml. al5 Outcome: 19:33 Discharge ordered by . avel 19:44 Discharged to home ambulatory, with significant other, al5 19:44 Condition: good 19:44 Discharge instructions given to patient, Instructed on discharge instructions, follow up and referral plans. medication usage, Demonstrated understanding of instructions, follow-up care, medications, Prescriptions given X 2, 19:45 Patient left the ED. al5 Signatures: Dispatcher [employer] EDFL Michael Helen, Reg Reg mr ShahMoses, RN RN jl7 Maxine Corbin, ANNE RN jose3 Jovita Calles Amanda, RN RN al5 Ant Coe, GUI DEVELOPER-C GUI DEVELOPER-Cdr5 Natalia Estrella RN RN kb4
[2025-09-03 19:50] VITALS: TEMP 98.4
[2025-09-03 19:54] VITALS: BP 132/85; O2SAT 96
== END 2025-09-03 19:45 | disposition home or self-care (01) ==
LOC: ER 17:50
DX: R09.1 Pleurisy (principal)
CPT/HCPCS: 96361; 93005; 85025; 80048; 36415; 85379; 84484; 83880; 71045; 96375; 96374; 99284; J1100; J2405; J7030